=== PATIENT | female | born 1975 | race Caucasian/White ===

== ENCOUNTER 2019-03-04 05:06 | Emergency (ER) | payer OTHER ==
[~2019-03-04] VITALS: Ht 165.1 cm; Wt 122.5 kg
[~2019-03-04 05:06] MED LIST: BENZ1TAB7 PO; RISP2TAB5 PO
--- NOTE | 2019-03-04 05:30 | NUR ---
PT BIB EX TO CHECK LITHIUM LEVELS. STATES HER DOSE WAS "CHANGED FROM 300MG DAILY TO 900MG 2 WEEKS AGO". PT A/OX4. BREATHING EVEN AND UNLABORED. PLACED ON AGRICULTURE SCIENCE TEACHER AND PULSE OX.
--- NOTE | 2019-03-04 05:40 | NUR ---
BAND ATTACHER AT BEDSIDE FOR BLOOD DRAW
[2019-03-04 05:54] LABS: APPEARANCE,URINE Clear (CLEAR); BILIRUBIN,URINE SMALL (NEGATIVE); BLOOD, URINE Trace-lysed Ery/uL (NEGATIVE); COLOR,URINE Amber (YELLOW); KETONES,URINE Trace (NEGATIVE); LEUKOCYTE ESTERASE ,URINE Negative (NEGATIVE); NITRITE, URINE Negative (NEGATIVE); PROTEIN,URINE Trace mg/dl (NEGATIVE); UGLUCOSE Negative (NEGATIVE)
[2019-03-04 05:58] LABS: BASOPHILS # (AUTO) 0.1 /CMM (0.0-0.2); BASOPHILS % (AUTO) 0.7 % (0.0-2.0); EOSINOPHILS % (AUTO) 0.5 % (0.0-6.0); HEMATOCRIT 40 % (33-45); HEMOGLOBIN 12.9 g/dL (11.5-14.8); LYMPHOCYTES # (AUTO) 2.6 /CMM (0.8-4.8); LYMPHOCYTES % (AUTO) 20.3 % (20.0-44.0); MEAN CORPUSCULAR HGB CONC 32 g/dl (31.0-36.0); MEAN CORPUSCULAR VOLUME 79 fL (82-100); MONOCYTES # (AUTO) 0.6 /CMM (0.1-1.30); MONOCYTES % (AUTO) 4.8 % (2.0-12.0); NEUTROPHILS # (AUTO) 9.5 /CMM (1.8-8.9); NEUTROPHILS % (AUTO) 73.7 % (43.0-81.0); PLATELET COUNT (AUTO) 301 /CMM (150-450); RED BLOOD CELL COUNT(AUTO) 5.07 MIL/uL (4.0-5.2); WHITE BLOOD COUNT (AUTO) 12.9 K/uL (4.3-11.0)
[2019-03-04 06:19] LABS: ALANINE AMINOTRANSFERASE 37 U/L (12-78); ALKALINE PHOSPHATASE 79 U/L (46-116); ASPARTATE AMINOTRANSFERASE 44 U/L (15-37); BILIRUBIN,DIRECT 0.1 mg/dL (0.0-0.2); BILIRUBIN,TOTAL 0.6 mg/dL (0.2-1.0); CALCIUM, SERUM 9.1 mg/dL (8.5-10.1); CARBON DIOXIDE 27 mmol/L (21-32); CHLORIDE 102 mmol/L (98-107); CREATININE 1.3 mg/dL (0.6-1.3); GLUCOSE 125 mg/dL (74-106); POTASSIUM 3.1 mmol/L (3.5-5.1); SODIUM SERUM 139 mmol/L (136-145); TOTAL PROTEIN, SERUM 7.7 g/dL (6.4-8.2); UREA NITROGEN, BLOOD 15 mg/dL (7-18)
[2019-03-04 06:20] LABS: BACTERIA,URINE Few /HPF (None Seen); SQUAMOUS EPITHELIAL CELL,UR Few /HPF (None Seen)
[2019-03-04 06:23] LABS: ACETAMINOPHEN 0 ug/ml (10-30); ALCOHOL, BLOOD < 3 mg/dL (0-0); SALICYLATE 1.2 mg/dL (2.8-20.0)
--- NOTE | 2019-03-04 06:59 | NUR ---
PT AMBULATED TO RESTROOM WITH STEADY GAIT
--- NOTE | 2019-03-04 07:14 | NUR ---
REPORT GIVEN TO TRINITY MARTINEZ FOR SAN[place]NA.
[2019-03-04] MEDS ORDERED: POTASSIUM CHLORIDE 20 MEQ TAB.PRT.SR PO ONE ×2 (07:16→07:30)
--- NOTE | 2019-03-04 07:44 | NUR ---
Patient discharged to home in stable condition. Written and verbal after care instructions given. Patient verbalizes understanding of instruction.
[2019-03-04 07:45] VITALS: BP 139/65
== END 2019-03-04 07:46 | disposition home or self-care (01) ==
LOC: ER 05:09
DX: N39.0 Urinary tract infection, site not specified (principal); F31.9 Bipolar disorder, unspecified; E11.9 Type 2 diabetes mellitus without complications; Z60.2 Problems related to living alone; Z79.899 Other long term (current) drug therapy
CPT/HCPCS: 36415; 80048; 80076; 80305; 80307; 80329; 81001; 85025; 87086; 99283; G0480; 81000-TC

== ENCOUNTER 2019-03-05 02:29 | Emergency (ER) | payer OTHER ==
[~2019-03-05] VITALS: Ht 165.1 cm; Wt 122.5 kg
[2019-03-05 02:52] VITALS: BP 141/82
== END 2019-03-05 03:56 | disposition home or self-care (01) ==
LOC: ER 02:33
DX: Z00.00 Encounter for general adult medical examination without abnormal findings (principal); F31.9 Bipolar disorder, unspecified; E11.9 Type 2 diabetes mellitus without complications; Z60.2 Problems related to living alone; Z79.899 Other long term (current) drug therapy

== ENCOUNTER 2019-03-05 07:47 | Emergency (ER) | payer OTHER ==
[~2019-03-05] VITALS: Ht 165.1 cm; Wt 122.5 kg
--- NOTE | 2019-03-05 08:05 | NUR ---
patient came in to the ER c/o feeling depress, on room air, breathing evenly and unlabored. Ambulatory with steady gait. Kept comfortable, will continue to monitor accordingly.
[2019-03-05 08:29] VITALS: BP 145/81
--- NOTE | 2019-03-05 08:30 | NUR ---
Patient discharged to home in stable condition. Written and verbal after care instructions given. Patient verbalizes understanding of instruction. patient provided with food and tap card. Prescription given. Ambulatory with steady gait.
== END 2019-03-05 08:29 | disposition home or self-care (01) ==
LOC: ER 07:47
DX: F31.9 Bipolar disorder, unspecified (principal); E11.9 Type 2 diabetes mellitus without complications; Z60.2 Problems related to living alone; Z79.899 Other long term (current) drug therapy

== ENCOUNTER 2019-03-07 15:34 | Emergency (ER) | payer OTHER ==
[~2019-03-07] VITALS: Ht 167.6 cm; Wt 123.8 kg
--- NOTE | 2019-03-07 15:42 | NUR ---
CAROLINE FROM HOME TO ED BED 15. PER REPORT, PT WAS RUNNING AROUND OUTSIDE HER HOUSE WITHOUT HER PANTS ON. FAMILY AT BEDSIDE. STATES " SHE IS HAVING A PSYCHOTIC EPISODE." PT IS NON VERBAL UPON INITIAL ASSESSMENT. PLACED ON MONITOR. AWAITING MD ALVARADO.
--- NOTE | 2019-03-07 15:50 | NUR ---
PA AT BEDSIDE FOR EVAL.
[2019-03-07] MEDS ORDERED: OLANZAPINE 10 MG VIAL IM ONE ×2 (16:00→16:05)
[2019-03-07] MEDS ORDERED: LORAZEPAM INJ 2 MG/ML VIAL IM ONE (16:00)
[2019-03-07] MEDS ORDERED: IV NS 0.9% 1,000 ML BAG IV ONE (16:00)
[2019-03-07] MEDS ORDERED: LORAZEPAM INJ 2 MG/ML VIAL ONE (16:06)
[2019-03-07 16:22] LABS: BASOPHILS # (AUTO) 0.1 /CMM (0.0-0.2); BASOPHILS % (AUTO) 0.7 % (0.0-2.0); EOSINOPHILS % (AUTO) 0.5 % (0.0-6.0); HEMATOCRIT 39 % (33-45); HEMOGLOBIN 12.5 g/dL (11.5-14.8); LYMPHOCYTES # (AUTO) 3.5 /CMM (0.8-4.8); LYMPHOCYTES % (AUTO) 27.4 % (20.0-44.0); MEAN CORPUSCULAR HGB CONC 32 g/dl (31.0-36.0); MEAN CORPUSCULAR VOLUME 78 fL (82-100); MONOCYTES # (AUTO) 0.7 /CMM (0.1-1.30); MONOCYTES % (AUTO) 5.5 % (2.0-12.0); NEUTROPHILS # (AUTO) 8.4 /CMM (1.8-8.9); NEUTROPHILS % (AUTO) 65.9 % (43.0-81.0); PLATELET COUNT (AUTO) 297 /CMM (150-450); RED BLOOD CELL COUNT(AUTO) 4.96 MIL/uL (4.0-5.2); WHITE BLOOD COUNT (AUTO) 12.7 K/uL (4.3-11.0)
--- NOTE | 2019-03-07 16:23 | NUR ---
IV LINE ESTABLISHED, BLOOD DRAWNED AND SENT TO LAB.
[2019-03-07] MEDS ORDERED: diphenhydrAMINE HCL 50 MG/ML VIAL IM ONE (16:30)
--- NOTE | 2019-03-07 16:30 | NUR ---
1 MG ATIVAN IM GIVEN, 1MG ATIVAN WASTED WITNESSED BY MICHELLE VAZQUEZ.
[2019-03-07 16:35] LABS: ALANINE AMINOTRANSFERASE 38 U/L (12-78); ALBUMIN 3.8 g/dL (3.4-5.0); ALKALINE PHOSPHATASE 81 U/L (46-116); ASPARTATE AMINOTRANSFERASE 35 U/L (15-37); BILIRUBIN,DIRECT 0.1 mg/dL (0.0-0.2); BILIRUBIN,TOTAL 0.5 mg/dL (0.2-1.0); CALCIUM, SERUM 9.3 mg/dL (8.5-10.1); CARBON DIOXIDE 24 mmol/L (21-32); CHLORIDE 103 mmol/L (98-107); CREATININE 1.1 mg/dL (0.6-1.3); GLUCOSE 126 mg/dL (74-106); POTASSIUM 3.2 mmol/L (3.5-5.1); SODIUM SERUM 142 mmol/L (136-145); TOTAL PROTEIN, SERUM 7.3 g/dL (6.4-8.2); UREA NITROGEN, BLOOD 15 mg/dL (7-18)
[2019-03-07 16:39] LABS: ACETAMINOPHEN < 2 ug/ml (10-30); ALCOHOL, BLOOD < 3 mg/dL (0-0)
--- NOTE | 2019-03-07 16:39 | NUR ---
URINE SPECIMEN COLLECTED AND SENT TO LAB.
[2019-03-07] MEDS ORDERED: diphenhydrAMINE HCL 50 MG/ML VIAL ONE (16:41)
[2019-03-07 16:49] LABS: APPEARANCE,URINE Clear (CLEAR); BILIRUBIN,URINE SMALL (NEGATIVE); BLOOD, URINE Trace-intact Ery/uL (NEGATIVE); COLOR,URINE Yellow (YELLOW); KETONES,URINE Trace (NEGATIVE); LEUKOCYTE ESTERASE ,URINE Negative (NEGATIVE); NITRITE, URINE Negative (NEGATIVE); PROTEIN,URINE Negative (NEGATIVE); UGLUCOSE Negative (NEGATIVE); UROBILINOGEN,URINE 0.2 EU/dL (0.2)
[2019-03-07 17:10] LABS: BACTERIA,URINE Rare /HPF (None Seen); SQUAMOUS EPITHELIAL CELL,UR Few /HPF (None Seen); WBC,URINE NONE SEEN /HPF (0-3)
--- NOTE | 2019-03-08 00:18 | NUR ---
ENGINEERING PROJECT DESIGNER ACCOUNTS RECEIVABLE ADMINISTRATOR CALLED. LEFT A MESSAGE
--- NOTE | 2019-03-08 00:30 | NUR ---
[employer] BODY PAINTER WILL ARRIVE IN AN HOUR
--- NOTE | 2019-03-08 01:50 | NUR ---
ACCORDING TO PAPER CUTTING MACHINE OPERATOR. PT DOES NOT FIT PSYCHIATRIC CRITERIA FOR PLACEMENT. ADVISED TO WAIT UNTIL AM FOR CROWN WHEEL ASSEMBLER FOR PLACEMENT. ADVISED TO MEDICATE PATIENT FOR NOW.
[2019-03-08] MEDS ORDERED: LORAZEPAM INJ 2 MG/ML VIAL ONE (02:43)
[2019-03-08] MEDS ORDERED: OLANZAPINE 10 MG VIAL IM ONE ×2 (02:43→03:00)
[2019-03-08] MEDS ORDERED: LORAZEPAM INJ 2 MG/ML VIAL IM ONE (03:00)
--- NOTE | 2019-03-08 06:35 | NUR ---
KATHERINE FAMILY MEMBER WANTS CALL FOR UPDATES REGARDING PATIENT CONDITION.
--- NOTE | 2019-03-08 08:15 | NUR ---
CRESENCIO MARTINEZ CALLED FOR EVAL
--- NOTE | 2019-03-08 08:46 | NUR ---
Social service consult requested for altered mental status. Pt. is a 44 year old female with history of bipolar 1 disorder who is brought in by rescue ambulance for psychotic behavior. Family was by her bedside yesterday. Pt. was running around the house, took off her pants and suddenly went out to the streets. BERT met with pt. bedside. Pt. has a sitter bedside. Pt. is alert and oriented x 4. Pt. hair is disheveled. Pt. was polite and cooperative with SW during the assessment. Pt. states she lives with her ex- in her home located at [address] [place] [address]. Pt. has been for the past two years. Pt's mother Sowmya and ex- are very involved with pt's care. Pt. states she has a psychiatric diagnosis of Bipolar Disorder and takes [place]. Pt. was hospitalized on a 5150 in September of 2017 in [facility]. Pt. states she was stressed regarding helping her mom clean out her house and noticed there was "smog." Pt. denies suicidal and homicidal ideations and visual/auditory hallucinations at this time. BERT contacted pt's ex- Mathieu and updated him with aforementioned information. Mathieu informed BERT that there is no moving and cleaning of the house as the pt. mentioned. He would like pt. to be evaluated by the sanitation worker prior to discharge. BERT informed him [facility] clinician will be evaluating the pt. BERT updated Dr. Mayo as well with aforementioned information and Dr. Mayo agrees that pt. should be evaluated by sanitation worker prior to discharge. Pt's mother Sowmya can be reached at .
--- NOTE | 2019-03-08 09:04 | NUR ---
FOOD TRAY PROVIDED.
--- NOTE | 2019-03-08 10:00 | NUR ---
DARIEN MARTINEZ CRISISTEAM AT BEDSIDE FOR EVAL.
[2019-03-08 10:15] VITALS: BP 129/68
--- NOTE | 2019-03-08 10:30 | NUR ---
Patient discharged to home in stable condition. Written and verbal after care instructions given. Patient verbalizes understanding of instruction.
--- NOTE | 2019-03-08 10:35 | NUR ---
CALLED PATIEN MOTHER (JATINDER) PER PATIENT REQUEST, SPOKE WITH JATINDER AND STATED "I WILL BE THERE IN 20-30 MIN TO PICK HER UP".
== END 2019-03-08 10:33 | disposition home or self-care (01) ==
LOC: ER 15:40
DX: F31.9 Bipolar disorder, unspecified (principal); E11.9 Type 2 diabetes mellitus without complications; Z60.2 Problems related to living alone; Z79.899 Other long term (current) drug therapy
CPT/HCPCS: 36415; 80048; 80076; 80305; 80307; 80329; 81001; 85025; 96372 ×3; 99284; G0480; J1200; J2060 ×2; J3490 ×2; J7030; 81000-TC